=== PATIENT | female | born 1975 | race Caucasian/White ===

== ENCOUNTER → 2021-05-11 10:23 | Outpatient (BNVA) | payer OTHER, SELFPAY | PROVIDERS: PCP Family Medicine; Visit Provider Nurse Practitioner Women's Health | DX: Z13.0 Encounter for screening for diseases of the blood and blood-forming organs and certain disorders involving the immune mechanism (principal); Z13.220 Encounter for screening for lipoid disorders; Z13.1 Encounter for screening for diabetes mellitus; Z13.228 Encounter for screening for other metabolic disorders | CPT/HCPCS: 80053; 80061; 83036; 85025 ==

== ENCOUNTER 2021-09-24 07:18 | Outpatient (CLI) | payer OTHER, SELFPAY ==
--- NOTE | 2021-09-24 07:30 | MM_ITS ---
WS: [id number] BILATERAL DIGITAL SCREENING MAMMOGRAPHY WITH CAD CLINICAL INFORMATION: Z12.39 - Encounter for other screening for malignant neop... HISTORY: Screening mammogram. No current complaints. COMPARISON: TECHNIQUE: Bilateral CC and MLO views. FINDINGS: Scattered fibroglandular densities bilaterally. No suspicious focal mass, asymmetry, calcifications, or architectural distortion. No evidence of malignancy. MM/[place] [id number] IMPRESSION: BI-RADS: 1-Negative FOLLOW UP: 1 Year Follow-up Recommend return to annual screening mammography.
== END 2021-09-24 07:19 | disposition home or self-care (01) ==
LOC: RADSHAW 07:22
PROVIDERS: PCP Family Medicine; Visit Provider Nurse Practitioner Women's Health
DX: Z12.31 Encounter for screening mammogram for malignant neoplasm of breast (principal)
CPT/HCPCS: 77067

== ENCOUNTER 2022-04-12 18:27 | Emergency (ER) | payer OTHER, SELFPAY ==
[2022-04-12 18:29] VITALS: BP 144/98; PULSE 89; RESP 16; O2SAT 97; BMI 29.1
--- NOTE | 2022-04-12 18:39 | CTR_ITS ---
PROCEDURE INFORMATION: Exam: CT Head Without Contrast Exam date and time: 04/12/2022 6:56 PM Age: 47 years old Clinical indication: Injury or trauma; Other: Auto trailer gate fell on head; Concussion/head injury; Without loss of consciousness TECHNIQUE: Imaging protocol: Computed tomography of the head without contrast. Radiation optimization: All CT scans at this facility use at least one of these dose optimization techniques: automated exposure control; mA and/or kV adjustment per patient size (includes targeted exams where dose is matched to clinical indication); or iterative reconstruction. COMPARISON: No relevant prior studies available. RADIATION DOSE METRICS: Total DLP (mGy-cm): 1150.37 FINDINGS: Brain: Normal. No hemorrhage. Unremarkable white matter. No mass effect. Cerebral ventricles: No ventriculomegaly. Paranasal sinuses: Visualized sinuses are unremarkable. No fluid levels. Mastoid air cells: Visualized mastoid air cells are well aerated. Bones/joints: Unremarkable. No acute fracture. Soft tissues: Unremarkable. CT/CT head wo con* [id number] IMPRESSION: No acute intracranial abnormality.
--- NOTE | 2022-04-12 18:50 | CTR_ITS ---
PROCEDURE INFORMATION: Exam: CT Cervical Spine Without Contrast Exam date and time: 04/12/2022 6:56 PM Age: 47 years old Clinical indication: Injury or trauma; Other: Auto trailer fell on head; Concussion/head injury; Additional info: Head injury neck pain TECHNIQUE: Imaging protocol: Computed tomography of the cervical spine without contrast. Radiation optimization: All CT scans at this facility use at least one of these dose optimization techniques: automated exposure control; mA and/or kV adjustment per patient size (includes targeted exams where dose is matched to clinical indication); or iterative reconstruction. COMPARISON: No relevant prior studies available. RADIATION DOSE METRICS: Total DLP (mGy-cm): 216.4 FINDINGS: Bones/joints: No acute fracture. Normal alignment. Discs/Spinal canal/Neural foramina: No significant disc protrusion. No severe spinal canal stenosis. No significant neural foraminal narrowing. Lungs: Lung apices are normal. Soft tissues: Unremarkable. CT/CT cervical spin wo con* [id number] IMPRESSION: No acute findings.
[2022-04-12 18:56] VITALS: BP 144/98; PULSE 89; RESP 16; O2SAT 97
--- NOTE | 2022-04-12 19:00 | ED_ITS ---
HPI - Head Injury General: Chief complaint: Head Injury Stated complaint: HEAD INJURY Time Seen by Provider: 04/12/22 18:28 Source: patient and family History of Present Illness: 47-year-old female with a head injury on Friday, 4 days ago. She notes that she knelt down under a trailer ramp, and it fell striking her left parietal temporal region. She does not cut. She was not knocked out. 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 Since that time she is exp erienced headache, nausea, trouble concentrating, and dizziness. Headache seems to be worse today. Nausea is worse today. She complains also of upper neck pain, mostly on the left side but some midline. No significant weakness. Her notes that she has been a bit lethargic. MD Complaint: head injury Mechanism of Injury: other Place: home Loss of Consciousness: no Location of injury: parietal and temporal Radiation: none Other Injuries: neck Associated symptoms: Reports nausea, neck pain, vertigo, visual changes and weakness (Generalized); Deny amnesia, confusion, numbness, syncope, tingling or vomiting Review of Systems Const: Denies: fever(s) Eyes: Reports: change in vision; Denies: photophobia, eye discomfort or eye discharge Card: Denies: syncope Resp: Denies: dyspnea GI: Reports: nausea; Denies: vomiting Musc: Reports: neck pain; Denies: back pain Skin/Breast: Denies: rash Neuro: Reports: headache(s), dizziness and vertigo; Denies: numbness in extremities, weakness in extremities, confusion, behavioral changes or Slurred speech present [facility] PFSH: Medical History Migraine Has had for many years. Had been seen by Dr. Higginbotham, neurologist, in the past. Was on Imitrex which had worked well prior to . Patient has been having frequent headaches which are typical of her migraine headaches. This includes photophobia and nausea. Since she has done well with Imitrex in the past, I am starting her on SSRIs, Prozac, for headache suppression. She was also instructed in the use of Compazine and Benadryl. Potential use of other medications were discussed. - These are migraines without auras. She can continue care with Neft[facility]. No pertinent past medical history neghx: htn,dm,thyroid,dvt/pe Vulvodynia reports pain of the clitoris just with stimulation-- no trauma; been present since last 4 years ago. This has to be more nerve related-- today we discussed a trial of cymbalta. She agrees to proceed. Did not tolerate cymbalta--- discontinued. Resolved. Surgical History No pertinent past surgical history Family History Family/Other Ovarian cancer Maternal aunt, diagnosed in her 50s Breast cancer Maternal Aunt; had chemo in her 50s Grandmother Stroke Maternal Grandmother No problems noted. Mother Hyperlipidemia Diabetes Father Diabetes Grandfather Colon cancer Paternal Social History (Updated 05/03/21 @ 15:30 by Nakita Luu APN, JOAN) Additional social history: - Tobacco use: Never Alcohol use: Socially Drug use: Never Female Reproductive History: Date of last menstrual period: 08/26/18 Physical Exam Const: GENERAL APPEARANCE: cooperative; not frail appearing HENMT: COMMON NORMALS: normocephalic and Normal external nose present HEAD & SCALP: normocephalic and other (Left parietal tenderness) FACE & SINUS: normal facial exam and face symmetric NOSE: Normal external nose present Eye: COMMON NORMALS: Equal, round and reactive pupils present, EOMs intact bilaterally and conjunctivae normal GENERAL EYE: normal light reflex CONJUNCTIVA: Yes conjunctivae normal PUPIL: Yes Equal, round and reactive pupils present DIRECT OPHTHALMOSCOPY: Yes normal light reflex Neck/C-Spine: GENERAL: Yes normal visual inspection and Yes trachea midline CERVICAL SPINE: Yes Cervical spine tenderness C1 and C2 and Yes other (Left paraspinal muscle spasm) Chest: COMMONS NORMALS: normal inspection of the chest Resp: COMMON NORMALS: normal respiratory effort and No use of accessory muscles Cardio: COMMON NORMALS: regular rate and regular rhythm RATE: regular rate RHYTHM: regular rhythm GI: INSPECTION: Yes normal to inspection Neuro: JOAQUÍN COMA SCALE: document GCS findings [place] coma scale eye opening: Spontaneous Joaquín coma scale verbal response: Orientated Joaquín coma scale motor response: Obey commands Joaquín coma scale total score: 15 CRANI AL NERVES: Yes CN normal except as noted COORDINATION/BALANCE: [id number] test normal, does not sway with eyes open and Normal rapid alternating movements of the distal upper extremity present (Neuro) SPEECH: speech normal SENSORY EXAM: Yes extremities (Grossly intact) MOTOR EXAM: Pronator motor function not present COORDINATION: [id number] test normal, does not sway with eyes open and rapid alternating movement UE normal Psych: COMMON NORMALS: mental status grossly normal and cooperative Course Vital Signs: Vital signs: Vital Signs Pulse Rate 80 04/12/22 21:21 Respiratory Rate 16 04/12/22 21:21 Blood Pressure 129/82 04/12/22 21:21 Pulse Oximetry 95 04/12/22 21:21 Oxygen Delivery Me thod 04/12/22 19:16 MDM - Head Injury Medcial Decision Making CT of the head and cervical spine is negative. She is very likely concussed, but otherwise neurologically she is intact. She no doubt has a migraine headache. She has a history of migraines. Depacon infusion was attempted, but could not be completed due to no medication available. The patient was given Toradol, Benadryl, Zofran, Reglan, and fentanyl with relief. She was also given an injection of Imitrex which seem to help as well. She will be allowed home. Follow-up with her doctor. Lab Data Radiology Impressions Head CT 04/12/22 18:39 IMPRESSION: No acute intracranial abnormality. Cervical Spine CT 04/12/22 18:50 IMPRESSION: No acute findings. Discharge Plan Discharge Patient Disposition: Home Clinical Impression: Concussion without loss of consciousness, Headache Condition: Stable Prescriptions: New ondansetron 4 mg film 4 mg PO DAILY PRN (Reason: nausea and vomiting) Qty: 10 0RF promethazine 25 mg tablet 25 mg PO TID PRN (Reason: nausea and vomiting) Qty: 10 0RF Rx Instructions: 3 doses during day; last dose no later than 4 hr before bedtime sumatriptan succinate 100 mg tablet See Rx Instructions .ROUTE .COMPLEX Qty: 10 0RF Rx Instructions: take 1 tab at onset of headache; if no relief, may repeat 1 tab after at least 2 hrs; max = 2 tabs/24 hrs No Action Mirena 20 mcg/24 hours (5 yrs) 52 mg intrauterine device 1 device INTRAUTERI ONCE Multiple Vitamin, Womens Tablet PO DAILY cholecalciferol (vitamin D3) 1,000 unit capsule 1,000 unit PO DAILY Label Comments: unsure of dose Discharge Orders: Discharge ED (Routine); Ordered 04/12/22 Ordered By: Getachew Wayne Referrals: Vicente Yoon MD [Primary Care Provider] - 4-7 days Patient Instructions: Concussion (ED), General Headache (ED) Activity Restrictions/Additional Instructions: Return for worsening mental status, vomiting despite treatment, worsening headache despite treatment, any other concerning symptoms. Follow-up with your doctor. Coding Level of Care Code ED Spring Former Hand for Chg Fwd Exam Comprehensive
[2022-04-12] MEDS: fentaNYL 50 mcg/mL INJ 2mL IVP (19:09)
[2022-04-12] MEDS: sodium chloride 0.9% 1,000 ML 999 ML IV ×2 (19:09→20:34)
[2022-04-12] MEDS: ondansetron 2 mg/ML SDV 2 mL 4 MG IVP (19:09)
[2022-04-12] MEDS: diphenhydrAMINE 50 mg/mL SDV 1mL 12.5 MG IVP (19:14)
[2022-04-12 19:16] VITALS: BP 150/86; PULSE 73; RESP 16; O2SAT 96
[2022-04-12] MEDS: SUMAtriptan 6 mg/0.5 mL SDV SUBCUT (19:55)
[2022-04-12] MEDS: ketorolac 30 mg/mL INJ 15 MG IVP (19:55)
[2022-04-12] MEDS: metoclopramide 5 mg/mL SDV 2 mL 10 MG IVP (20:12)
[2022-04-12 20:46] VITALS: RESP 19
[2022-04-12] MEDS: fentaNYL 50 mcg/mL INJ 2mL 75 MCG IVP (20:46)
[2022-04-12 21:21] VITALS: BP 129/82; PULSE 80; RESP 16; O2SAT 95
== END 2022-04-12 21:22 | disposition home or self-care (01) ==
PROVIDERS: Emergency Provider Emergency Medicine; PCP Family Medicine
DX: S06.0X0A Concussion without loss of consciousness, initial encounter (principal); R51.9 Headache, unspecified; W20.8XXA Other cause of strike by thrown, projected or falling object, initial encounter
CPT/HCPCS: 70450; 72125; 96361; 96372; 96374; 96375; 96376; 99285; J1200; J1885; J2405; J2765; J3010; J3030; J7030

== ENCOUNTER 2022-09-27 10:32 | Outpatient (CLI) | payer OTHER, SELFPAY ==
--- NOTE | 2022-09-27 10:40 | MM_ITS ---
WS: [id number] BILATERAL SCREENING DIGITAL TOMOSYNTHESIS MAMMOGRAM WITH CAD HISTORY: Screening. COMPARISON: 09/24/2021, 05/19/2018 Bilateral CC and MLO views with tomosynthesis and synthetic mammography submitted. Computer aided det ection analyzed. Breast composition: There are scattered areas of fibroglandular density. No suspicious masses, microc alcifications or architectural distortion. MM/[place] [id number] IMPRESSION: BI-RADS: 1-Negative FOLLOW UP: 1 Year Follow-up
== END 2022-09-27 10:33 | disposition home or self-care (01) ==
PROVIDERS: PCP Family Medicine; Visit Provider Nurse Practitioner Women's Health
DX: Z12.31 Encounter for screening mammogram for malignant neoplasm of breast (principal)
CPT/HCPCS: 77063; 77067

== ENCOUNTER → 2023-09-19 10:30 | Outpatient (BNVA) | payer OTHER, SELFPAY | PROVIDERS: PCP Family Medicine; Visit Provider Nurse Practitioner Women's Health | DX: Z12.4 Encounter for screening for malignant neoplasm of cervix (principal); Z01.419 Encounter for gynecological examination (general) (routine) without abnormal findings; Z30.431 Encounter for routine checking of intrauterine contraceptive device | CPT/HCPCS: 87624 ==

== ENCOUNTER → 2023-11-10 09:56 | Outpatient (BNVA) | payer OTHER, SELFPAY | PROVIDERS: PCP Family Medicine; Visit Provider Nurse Practitioner Family | DX: R10.9 Unspecified abdominal pain (principal); N39.0 Urinary tract infection, site not specified; B37.31 Acute candidiasis of vulva and vagina | CPT/HCPCS: 81003 ==

== ENCOUNTER 2024-10-08 10:57 | Outpatient (CLI) | payer OTHER, SELFPAY ==
--- NOTE | 2024-10-08 11:00 | MM_ITS ---
WS: [id number] BILATERAL SCREENING DIGITAL TOMOSYNTHESIS MAMMOGRAM WITH CAD HISTORY: Z12.31 - Encounter for screening mammogram for malignant ... COMPARISON: 05/27/2023, 09/24/2021 Bilateral CC and MLO views with tomosynthesis and synthetic mammography submitted. Computer aided detection analyzed. Breast composition: There are scattered areas of fibroglandular density. No suspicious masses, microcalcifications or architectural distortion. MM/MM scr BI tomosynthesis [id number] IMPRESSION: BI-RADS: 1 - Negative. FOLLOW UP: 1 Year Follow-up
== END 2024-10-08 10:58 | disposition home or self-care (01) ==
PROVIDERS: PCP Family Medicine; Visit Provider Nurse Practitioner Women's Health
DX: Z12.31 Encounter for screening mammogram for malignant neoplasm of breast (principal); R92.323 Mammographic fibroglandular density, bilateral breasts
CPT/HCPCS: 77063; 77067

== ENCOUNTER 2025-04-05 13:17 | Outpatient (CLI) | payer OTHER, SELFPAY | END 2025-04-05 13:18 | disposition home or self-care (01) | PROVIDERS: PCP Family Medicine; Visit Provider Nurse Practitioner Family | DX: R19.7 Diarrhea, unspecified (principal) | CPT/HCPCS: 87328; 87329 ==

== ENCOUNTER 2025-04-18 08:29 | Outpatient (CLI) | payer OTHER, SELFPAY ==
--- NOTE | 2025-04-18 08:45 | MM_ITS ---
WS: [id number] DIAGNOSTIC LEFT DIGITAL BREAST TOMOSYNTHESIS WITH CAD LEFT BREAST ULTRASOUND, LIMITED HISTORY: N64.9 - Disorder of breast, unspecified, new palpable area lateral LEFT breast. COMPARISON: 10/08/2024, 09/27/2022 Left craniocaudal, mediolateral oblique and medial lateral images are submitted with tomosynthesis and SM. Computer aided detection performed. Breast composition: The breasts are heterogeneously dense, which may obscure small masses. No suspicious masses or calcifications. No architectural distortion. Very similar fibroglandular pattern when compared to the most recent exam. No associated abnormality with the triangular marker placed in the area of pain and the palpable abnormality. No distortion. Ultrasound to follow. LEFT breast ultrasound, limited. No ultrasound abnormality is noted in the LEFT upper outer quadrant. There is no shadowing. No mass. MM/MM diag LT tomosynthesis [id number] IMPRESSION: BI-RADS: 2 - Benign FOLLOW UP: 1 Year Follow-up No ultrasound or mammographic abnormality upper outer quadrant LEFT breast iden tified. Return to annual screening mammography.
--- NOTE | 2025-04-18 09:15 | US_ITS ---
WS: [id number] DIAGNOSTIC LEFT DIGITAL BREAST TOMOSYNTHESIS WITH CAD LEFT BREAST ULTRASOUND, LIMITED HISTORY: N64.9 - Disorder of breast, unspecified, new palpable area lateral LEFT breast. COMPARISON: 10/08/2024, 09/27/2022 Left craniocaudal, mediolateral oblique and medial lateral images are submitted with tomosynthesis and SM. Computer aided detection performed. Breast composition: The breasts are heterogeneously dense, which may obscure small masses. No suspicious masses or calcifications. No architectural distortion. Very similar fibroglandular pattern when compared to the most recent exam. No associated abnormality with the triangular marker placed in the area of pain and the palpable abnormality. No distortion. Ultrasound to follow. LEFT breast ultrasound, limited. No ultrasound abnormality is noted in the LEFT upper outer quadrant. There is no shadowing. No mass. US/US breast LT limited* [id number] IMPRESSION: BI-RADS: 2 - Benign FOLLOW UP: 1 Year Follow-up No ultrasound or mammographic abnormality upper outer quadrant LEFT breast iden tified. Return to annual screening mammography.
== END 2025-04-18 08:30 | disposition home or self-care (01) ==
PROVIDERS: PCP Family Medicine; Visit Provider Nurse Practitioner Women's Health
DX: N64.9 Disorder of breast, unspecified (principal); N64.4 Mastodynia; R92.333 Mammographic heterogeneous density, bilateral breasts
CPT/HCPCS: 76642; 77061; G0279